=== PATIENT | male | born 1950 | race Caucasian/White ===

== ENCOUNTER → 2016-10-28 | Outpatient (CLI) | payer OTHER, MEDICARE | LOC: FIMAGING 13:17 | PROVIDERS: ATTEND Surgery | DX: R10.31 Right lower quadrant pain (principal); R10.32 Left lower quadrant pain ==

== ENCOUNTER 2016-11-02 11:17 | Day surgery (SDC) | payer OTHER, MEDICARE ==
[~2016-11-02 11:17] MED LIST: BUPIVACAINE/EPI 0.25% 30 ML SDV ONE
[2016-11-02] MEDS ORDERED: MIDAZOLAM 2 MG/2 ML VIAL ONE (11:35)
[2016-11-02] MEDS ORDERED: LR 1,000 ML IV ONE (11:40)
[2016-11-02] MEDS ORDERED: LIDOCAINE 1% 5 ML SDV ID PRN (11:40)
[2016-11-02] MEDS ORDERED: fentaNYL 100 MCG/2 ML INJ ONE ×2 (11:55→12:12)
[2016-11-02] MEDS ORDERED: ceFAZolin 2 GM/DEXTROSE 100 ML IV ONE (12:00)
--- NOTE | 2016-11-02 22:20 | GOP ---
[f rep st] OPERATIVE REPORT DATE OF OPERATION: 11/02/2016 SURGEON: Jose Trinh MD FIRESTOPPER INSTALLER: None. ANESTHESIA: General endotracheal. ANESTHESIOLOGIST: Leonard Enamorado MD PREOPERATIVE DIAGNOSIS: Recurrent left inguinal hernia. POSTOPERATIVE DIAGNOSIS: Recurrent left inguinal hernia. PROCEDURE PERFORMED: Recurrent open left inguinal hernia repair with mesh. FINDINGS: Inguinal floor appeared weak, which was imbricated. Cord structures were identified. No indirect sac was noted. A large cord lipoma, however, was excised. SPECIMENS: None. ESTIMATED BLOOD LOSS: 5 cc. DESCRIPTION OF PROCEDURE: The patient was greeted in the preoperative suite. Once again, risks, benefits, and alternatives were discussed. Consent was signed. The patient was then brought back to the operative suite, placed on the OR table in supine position. After all anesthesia machines were on and functioning, a [employer] time-out was performed. After successful induction of general anesthetic, the patient's left groin and abdomen was prepped and draped in typical sterile fashion. I identified the pubic tubercle and the ASIS and I made an approximate 3.5 cm incision along the skin lines just adjacent to the pubic tubercle. I carried this down through the subcutaneous tissue using electrocautery, where I encountered the fibers of the external oblique aponeurosis. These were incised sharply. Once successfully in the inguinal canal, I cleaned the underside of the external oblique and encircled the cord structures with a [place] drain. After this was done, I turned my attention toward the inguinal floor. It appeared weak without any fani defect. I made the decision at this point in time to imbricate the floor using a running 3-0 Vicryl, noting excellent imbrication and good tension on the inguinal floor. After this was done, I turned my attention toward the cord itself. I bluntly dissected the cremasteric fibers. Once inside the cord proper, I identified a fairly large cord lipoma. I did not identify any hernia sac within the cord itself. I identified and preserved all the cord structures and amputated and ligated the lipoma using a 3-0 suture ligature. After this was done, I once again visualized that all cord structures were in place. I then brought my mesh into the field, which was a Parietex ProGrip mesh site specific. I attached it to the pubic tubercle using interrupted 0 Vicryl stitch. After this was done, I allowed it to lay within the inguinal canal along the fibers of the inguinal ligament laterally and made sure that I had adequate medial coverage. I reapproximated the internal ring appropriately. Once this was done , I did place an additional stitch medially on the conjoined tendon to ensure adequate coverage. After this, I did place some local anesthesia including 0.25 % Marcaine into the field throughout the case. I closed the external oblique aponeurosis using a running 2-0 Vicryl stitch. Kirk fascia was reapproximated with a running 3-0 Vicryl and the skin was closed with running 4- 0 Monocryl. Dermabond was placed. The patient was then extubated in the operative suite and taken to the PACU in satisfactory condition. DRAINS: None. COUNTS: All counts were reported as correct x2. /[id number]/MODL MTDD
== END 2016-11-02 14:26 | disposition home or self-care (01) ==
LOC: FSGY 11:17
PROVIDERS: ATTEND Surgery
PROC: 0YU60JZ Supplement Left Inguinal Region with Synthetic Substitute, Open Approach (ICD-10-PCS; principal; 2016-11-02 11:45)
DX: K40.91 Unilateral inguinal hernia, without obstruction or gangrene, recurrent (principal); I10 Essential (primary) hypertension; M10.00 Idiopathic gout, unspecified site; M19.019 Primary osteoarthritis, unspecified shoulder
CPT/HCPCS: C1781; J0690; J2250; J3010

== ENCOUNTER → 2018-01-27 | Outpatient (CLI) | payer OTHER, MEDICARE | LOC: BHLMT 13:00 | PROVIDERS: ATTEND Internal Medicine Cardiovascular Disease | DX: R94.31 Abnormal electrocardiogram [ECG] [EKG] (principal); R68.89 Other general symptoms and signs | CPT/HCPCS: 78452; 93017; A9500 ==